=== PATIENT | male | born 1950 | race Caucasian/White ===

== ENCOUNTER 2021-09-27 17:53 | Emergency (ER) | payer SELFPAY | END 2021-09-27 18:09 | LOC: MW.ED 17:53 | DX: Z00.8 Encounter for other general examination (principal) | CPT/HCPCS: 99282; 99283 ==

== ENCOUNTER 2022-09-19 23:15 | Emergency (ER) | payer SELFPAY | END 2022-09-19 23:28 | disposition left against medical advice (07) | LOC: MW.ED 23:15 → MERGE 23:15 → MW.ED 23:28 | DX: Z53.21 Procedure and treatment not carried out due to patient leaving prior to being seen by health care provider (principal) ==